=== PATIENT | male | born 1990 | race American Indian/Alaskan Native ===

== ENCOUNTER 2018-05-20 20:24 | Emergency (ER) | payer OTHER ==
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
== END 2018-05-21 01:30 | disposition home or self-care (01) ==
LOC: ED 20:24
CPT/HCPCS: 99282